=== PATIENT | male | born 1965 | race Caucasian/White ===

== ENCOUNTER 2018-09-09 12:10 | Outpatient (REF) | payer BC, SELFPAY ==
[2018-09-09 21:32] LABS: Anion Gap 7.8 mmol/L (3-11); BUN 23 mg/dL (7-18); CO2 29.2 mmol/L (21.0-32.0); CREATININE 0.97 mg/dL (0.70-1.30); Chloride 101 mmol/L (98-107); Glucose 156 mg/dL (70-100); Potassium 4.4 mmol/L (3.5-5.1); Sodium 138 mmol/L (136-145)
[2018-09-09 22:25] LABS: COMMENT (LAB VIEW ONLY) 37.46 mg/dL; Microalb ug/mg Crea 96.9 ug/mg Cr
== END 2018-09-09 12:30 ==
LOC: NCHCN 12:10
PROVIDERS: PCP Internal Medicine; Visit Provider Internal Medicine
DX: E11.9 Type 2 diabetes mellitus without complications (principal)
CPT/HCPCS: 80048; 82043; 82570

== ENCOUNTER 2019-06-16 12:31 | Outpatient (REF) | payer BC, SELFPAY ==
[2019-06-16 20:34] LABS: Hemoglobin A1C 8.1 % (3.8-5.6)
[2019-06-16 21:00] LABS: ALT 38 U/L (16-63); AST 22 U/L (15-37); Albumin 3.8 g/dL (3.4-5.0); Alkaline Phosphatase 78 U/L (46-116); Anion Gap 8.7 mmol/L (3-11); Bilirubin, Total 0.4 mg/dL (0.2-1.0); CO2 30.3 mmol/L (21.0-32.0); CREATININE 0.87 mg/dL (0.70-1.30); Calcium 9.5 mg/dL (8.5-10.1); Calculated LDL 132 mg/dL (<100); Chloride 102 mmol/L (98-107); Cholesterol 208 mg/dL (<200); Glucose 116 mg/dL (74-106); HDL Cholesterol 37 mg/dL (40-60); Potassium 4.9 mmol/L (3.5-5.1); Sodium 141 mmol/L (136-145); Total Protein 7.3 g/dL (6.4-8.2); Triglyceride 197 mg/dL (<150)
[2019-06-16 21:12] LABS: BUN 28 mg/dL (7-18)
== END 2019-06-16 12:51 ==
LOC: NCHCN 12:31
PROVIDERS: PCP Internal Medicine; Visit Provider Internal Medicine
DX: I10 Essential (primary) hypertension (principal); E78.9 Disorder of lipoprotein metabolism, unspecified; E11.9 Type 2 diabetes mellitus without complications; M54.5 Low back pain; E66.9 Obesity, unspecified
CPT/HCPCS: 80053; 80061; 83036

== ENCOUNTER 2019-11-14 18:37 | Outpatient (REF) | payer BC, SELFPAY ==
[2019-11-14 22:19] LABS: Anion Gap 9.5 mmol/L (3-11); BUN 25 mg/dL (7-18); CO2 29.5 mmol/L (21.0-32.0); CREATININE 1.08 mg/dL (0.70-1.30); Calcium 9.6 mg/dL (8.5-10.1); Chloride 101 mmol/L (98-107); Glucose 146 mg/dL (74-106); Sodium 140 mmol/L (136-145)
[2019-11-14 22:35] LABS: Microalb ug/mg Crea 299.8 ug/mg Cr
[2019-11-14 22:54] LABS: Hemoglobin A1C 7.1 % (3.8-5.6)
== END 2019-11-14 18:57 ==
LOC: NCHCN 18:37
PROVIDERS: PCP Internal Medicine; Visit Provider Internal Medicine
DX: E11.9 Type 2 diabetes mellitus without complications (principal); I10 Essential (primary) hypertension; R80.9 Proteinuria, unspecified
CPT/HCPCS: 80048; 82043; 82570; 83036

== ENCOUNTER 2020-07-24 11:53 | Outpatient (REF) | payer BC, SELFPAY ==
[2020-07-24 14:22] LABS: BUN 18 mg/dL (7-18); Calculated LDL 46 mg/dL (<100); Chloride 102 mmol/L (98-107); Cholesterol 127 mg/dL (<200); Glucose 108 mg/dL (74-106); HDL Cholesterol 44 mg/dL (40-60); Potassium 4.4 mmol/L (3.5-5.1); Sodium 140 mmol/L (136-145); Triglyceride 188 mg/dL (<150)
[2020-07-24 14:53] LABS: Hemoglobin A1C 6.4 % (<5.7)
== END 2020-07-24 11:54 | disposition home or self-care (01) ==
LOC: NCHCN 11:53
PROVIDERS: PCP Internal Medicine; Visit Provider Internal Medicine
DX: I10 Essential (primary) hypertension (principal); E78.5 Hyperlipidemia, unspecified; E11.9 Type 2 diabetes mellitus without complications
CPT/HCPCS: 80048; 80061; 83036

== ENCOUNTER 2021-09-01 17:46 | Outpatient (REF) | payer BC, SELFPAY ==
[2021-09-01 18:26] LABS: ALT 37 U/L (16-63); AST 31 U/L (15-37); Albumin 4.4 g/dL (3.4-5.0); Alkaline Phosphatase 72 U/L (46-116); Anion Gap 7.5 mmol/L (3-11); BUN 19 mg/dL (7-18); Bilirubin, Total 0.6 mg/dL (0.2-1.0); CO2 26.5 mmol/L (21.0-32.0); CREATININE 0.9 mg/dL (0.70-1.30); Calcium 9.2 mg/dL (8.5-10.1); Calculated LDL 84 mg/dL (<100); Chloride 104 mmol/L (98-107); Cholesterol 147 mg/dL (<200); Glucose 105 mg/dL (74-106); HDL Cholesterol 49 mg/dL (40-60); Potassium 4.3 mmol/L (3.5-5.1); Sodium 138 mmol/L (136-145); Total Protein 7.9 g/dL (6.4-8.2); Triglyceride 73 mg/dL (<150)
[2021-09-01 18:27] LABS: Abs Immature Grans 0.22 10^3/uL (0.0-0.06); Absolute Basophil Count 0.02 10^3/uL (0.0-0.2); Absolute Eosinophil Count 0.07 10^3/uL (0.0-0.7); Absolute Lymphocyte Count 1.83 10^3/uL (1.2-3.4); Absolute Monocyte Count 0.38 10^3/uL (0.1-0.8); Absolute Neutrophil Count 2.11 10^3/uL (1.2-6.7); Basophils % 0.4; Eosinophils % 1.5; HCT 47.2 % (40.0-50.0); HGB 15.5 g/dL (13.5-17.5); Immature Grans % 4.8; Lymphocytes % 39.5; MCHC 32.8 % (32.0-36.0); MCV 88.2 fL (80-95); Monocytes % 8.2; Neutrophils % 45.6; RBC 5.35 10^6/uL (4.36-5.78); RDW 13.4 % (11.8-14.1); RDW-SD 43.3 fL; WBC 4.63 10^3/uL (4.4-10.8)
[2021-09-01 18:46] LABS: Hemoglobin A1C 6.1 % (<5.7)
[2021-09-02 20:15] LABS: PSA, Screening 0.5 ng/mL (<=3.5)
== END 2021-09-01 17:47 | disposition home or self-care (01) ==
LOC: NCHCN 17:46
PROVIDERS: PCP Internal Medicine; Visit Provider Internal Medicine
DX: I10 Essential (primary) hypertension (principal); E78.5 Hyperlipidemia, unspecified; E11.9 Type 2 diabetes mellitus without complications; Z12.5 Encounter for screening for malignant neoplasm of prostate
CPT/HCPCS: 80053; 80061; 84153; 83036; 85025

== ENCOUNTER 2021-09-03 15:04 | Outpatient (REF) | payer BC, SELFPAY ==
[2021-09-03 16:55] LABS: COMMENT (LAB VIEW ONLY) 90.45 mg/dL; Microalb ug/mg Crea 14.7 ug/mg Cr
== END 2021-09-03 15:05 | disposition home or self-care (01) ==
LOC: NCHCN 15:04
PROVIDERS: PCP Internal Medicine; Visit Provider Internal Medicine
DX: E11.9 Type 2 diabetes mellitus without complications (principal)
CPT/HCPCS: 82043; 82570

== ENCOUNTER 2022-06-26 15:57 | Outpatient (REF) | payer BC, SELFPAY ==
[2022-06-26 20:50] LABS: HCT 44.4 % (40.0-50.0); HGB 14.6 g/dL (13.5-17.5); MCH 29.3 pg (27.0-33.0); MCHC 32.9 % (32.0-36.0); MCV 89 fL (80-95); MPV 9.5 fL (8.0-11.0); Platelet Count 270 10^3/uL (130-400); RBC 4.99 10^6/uL (4.36-5.78); RDW 12.9 % (11.8-14.1); WBC 7.58 10^3/uL (4.4-10.8)
[2022-06-26 20:58] LABS: Anion Gap 9.5 mmol/L (3-11); BUN 19 mg/dL (7-18); CO2 24.5 mmol/L (21.0-32.0); CREATININE 0.9 mg/dL (0.70-1.30); Calcium 9.6 mg/dL (8.5-10.1); Chloride 105 mmol/L (98-107); Estimated GFR 100.24 (mL/min/1.73m2); Glucose 95 mg/dL (74-106); Potassium 4.1 mmol/L (3.5-5.1); Sodium 139 mmol/L (136-145)
== END 2022-06-26 15:58 | disposition home or self-care (01) ==
LOC: NCHCN 15:57
PROVIDERS: PCP Internal Medicine; Visit Provider Internal Medicine
DX: E11.9 Type 2 diabetes mellitus without complications (principal); Z00.00 Encounter for general adult medical examination without abnormal findings
CPT/HCPCS: 80048; 85027

== ENCOUNTER 2023-06-28 09:59 | Outpatient (REF) | payer BC, SELFPAY ==
[2023-06-28 15:25] LABS: BUN 18 mg/dL (7-18); Calcium 9.7 mg/dL (8.5-10.1); Chloride 105 mmol/L (98-107); Estimated GFR 87.78 (mL/min/1.73m2); Glucose 97 mg/dL (74-106); Hemoglobin A1C 5.6 % (<5.7); Potassium 4.1 mmol/L (3.5-5.1); Sodium 142 mmol/L (136-145)
== END 2023-06-28 10:00 | disposition home or self-care (01) ==
LOC: NCHCN 09:59
PROVIDERS: PCP Internal Medicine; Referring Provider Internal Medicine; Visit Provider Internal Medicine
DX: E11.9 Type 2 diabetes mellitus without complications (principal); I10 Essential (primary) hypertension
CPT/HCPCS: 80048; 83036

== ENCOUNTER 2023-07-05 18:27 | Outpatient (REF) | payer BC, SELFPAY ==
[2023-07-05 22:20] LABS: COMMENT (LAB VIEW ONLY) 164.74 mg/dL; Microalb ug/mg Crea 6.7 ug/mg Cr
== END 2023-07-05 18:28 | disposition home or self-care (01) ==
LOC: NCHCN 18:27
PROVIDERS: PCP Internal Medicine; Visit Provider Internal Medicine
DX: E11.9 Type 2 diabetes mellitus without complications (principal)
CPT/HCPCS: 82043; 82570

== ENCOUNTER 2024-07-03 08:04 | Outpatient (REF) | payer BC, SELFPAY ==
[2024-07-03 15:45] LABS: ALT 35 U/L (16-63); AST 33 U/L (15-37); Albumin 4.3 g/dL (3.4-5.0); Alkaline Phosphatase 65 U/L (46-116); Anion Gap 8.7 mmol/L (3-11); BUN 22 mg/dL (7-18); Bilirubin, Total 0.34 mg/dL (0.2-1.0); CO2 24.3 mmol/L (21.0-32.0); CREATININE 0.9 mg/dL (0.70-1.30); Calcium 9.4 mg/dL (8.5-10.1); Calculated LDL 71 mg/dL (<100); Chloride 108 mmol/L (98-107); Cholesterol 135 mg/dL (<200); Glucose 113 mg/dL (74-106); HDL Cholesterol 55 mg/dL (40-60); Potassium 4.1 mmol/L (3.5-5.1); Sodium 141 mmol/L (136-145); Total Protein 7.8 g/dL (6.4-8.2); Triglyceride 49 mg/dL (<150)
[2024-07-03 16:28] LABS: Hemoglobin A1C 5.7 % (<5.7)
[2024-07-03 16:51] LABS: COMMENT (LAB VIEW ONLY) 88.33 mg/dL; Microalb ug/mg Crea 34.9 ug/mg Cr
== END 2024-07-03 08:05 | disposition home or self-care (01) ==
LOC: NCHCN 08:04
PROVIDERS: PCP Internal Medicine; Visit Provider Internal Medicine
DX: I10 Essential (primary) hypertension (principal); E78.5 Hyperlipidemia, unspecified; E11.9 Type 2 diabetes mellitus without complications
CPT/HCPCS: 80053; 80061; 82043; 82570; 83036

== ENCOUNTER 2024-07-07 09:53 | Outpatient (REF) | payer BC, SELFPAY ==
[2024-07-07 15:05] LABS: HCT 42.4 % (40.0-50.0); HGB 14.3 g/dL (13.5-17.5); MCH 29.9 pg (27.0-33.0); MCHC 33.7 % (32.0-36.0); MCV 89 fL (80-95); MPV 9.7 fL (8.0-11.0); Platelet Count 235 10^3/uL (130-400); RBC 4.78 10^6/uL (4.36-5.78); RDW 13.3 % (11.8-14.1); RDW-SD 43.6 fL; WBC 8.31 10^3/uL (4.4-10.8)
== END 2024-07-07 09:54 | disposition home or self-care (01) ==
LOC: NCHCN 09:53
PROVIDERS: PCP Internal Medicine; Visit Provider Internal Medicine
DX: G47.33 Obstructive sleep apnea (adult) (pediatric) (principal)
CPT/HCPCS: 85027